=== PATIENT | female | born 1990 | race African-American/Black ===

== ENCOUNTER 2018-02-13 12:06 | Emergency (ER) | payer SELFPAY ==
[~2018-02-13] VITALS: Ht 167.6 cm; Wt 56.9 kg
[2018-02-13 13:05] LABS: MICROSCOPIC INDICATED
[2018-02-13 13:06] LABS: CULTURE INDICATED? YES
[2018-02-13] MEDS ORDERED: OXYcodone/APAP 5/325MG TABLET ONE (13:53)
[2018-02-13 13:55] VITALS: BP 114/82
[2018-02-13] MEDS ORDERED: OXYcodone/APAP 5/325MG TABLET PO ONE (14:00)
[2018-02-13 14:15] LABS: HCG UR SG 1.023 (1.003-1.030)
== END 2018-02-13 14:11 | disposition home or self-care (01) ==
LOC: ED 14:05
DX: N12 Tubulo-interstitial nephritis, not specified as acute or chronic (principal); F17.210 Nicotine dependence, cigarettes, uncomplicated
CPT/HCPCS: 81001; 81025; 87077; 87086; 87186; 99284

== ENCOUNTER 2018-04-27 18:00 | Emergency (ER) | payer SELFPAY ==
[~2018-04-27] VITALS: Ht 167.6 cm; Wt 56.8 kg
[2018-04-27] MEDS ORDERED: ONDANSETRON ODT 4 MG PO ONE (18:30)
[2018-04-27] MEDS ORDERED: HYDROcodone/APAP 5/325 TABLET PO ONE (18:30)
[2018-04-27] MEDS ORDERED: LIDOCAINE-MPF 1%, 5ML INFIL ONE (18:30)
[2018-04-27] MEDS ORDERED: LIDOCAINE-MPF 2%, 2ML ONE (18:35)
[2018-04-27] MEDS ORDERED: HYDROcodone/APAP 5/325 TABLET ONE (19:07)
[2018-04-27] MEDS ORDERED: ONDANSETRON ODT 4 MG ONE (19:07)
[2018-04-27 19:21] VITALS: BP 131/64
== END 2018-04-27 19:23 | disposition home or self-care (01) ==
LOC: ED 19:10
DX: L03.311 Cellulitis of abdominal wall (principal); L02.211 Cutaneous abscess of abdominal wall; M06.9 Rheumatoid arthritis, unspecified; F17.200 Nicotine dependence, unspecified, uncomplicated; Z79.82 Long term (current) use of aspirin
CPT/HCPCS: 10060; 99283; Q0162

== ENCOUNTER 2018-05-15 18:59 | Emergency (ER) | payer OTHER ==
[~2018-05-15] VITALS: Ht 172.7 cm; Wt 55.0 kg
[2018-05-15] MEDS ORDERED: PRED20TA PO (19:13)
[2018-05-15] MEDS ORDERED: SODIUM CHLORIDE 0.9% 1,000ML IVBOLUS ONE (19:30)
[2018-05-15 19:36] LABS: MEAN CORPUSCULAR HEMOGLOBIN 30.9 pg (27.0-34.8); MEAN CORPUSCULAR VOLUME 93.7 fL (80-100); MEAN PLATELET VOLUME 8.4 fL (7.4-10.4); PLATELET COUNT 378 x10^3/uL (130-400); RED BLOOD COUNT 4.24 x10^6/uL (3.82-5.3); RED CELL DISTRIBUTION WIDTH 13.7 % (9.6-15.2)
[2018-05-15 19:43] LABS: ALBUMIN 3.5 g/dL (3.4-5.0); ANION GAP 6 mmol/L (5-15); CALCIUM 8.8 mg/dL (8.5-10.1); CHLORIDE 110 mmol/L (98-107)
[2018-05-15 19:48] LABS: ALANINE AMINOTRANSFERASE 26 U/L (12-78); ALKALINE PHOSPHATASE 56 U/L (45-117); BILIRUBIN,TOTAL 0.2 mg/dL (0.2-1.0); CREATININE 1.08 mg/dL (0.55-1.02); TOTAL PROTEIN 7.3 g/dL (6.4-8.2)
[2018-05-15 20:06] LABS: MD YES
[2018-05-15 20:08] LABS: <PLATELET ESTIMATE> ADEQUATE; <PLT MORPHOLOGY> NORMAL PLT MORPH; <RBC MORPHOLOGY> NORMAL; BAND#(MANUAL) 0.07 x10^3/uL; BANDS%(MANUAL) 1 % (0-7); EOS#(MANUAL) 0.15 x10^3/uL (0.0-0.4); EOS% (MANUAL) 2 % (1-7); LYMPH#(MANUAL) 0.74 x10^3/uL (1-3.4); LYMPHS% (MANUAL) 10 % (22-44); MONOS#(MANUAL) 0.44 x10^3/uL (0.3-2.7); MONOS% (MANUAL) 6 % (2-9); SEG#(MANUAL) 5.99 x10^3/uL (1.8-6.8); SEGS% (MANUAL) 81 % (42-75)
[2018-05-15 20:12] VITALS: BP 113/75
== END 2018-05-15 21:34 | disposition home or self-care (01) ==
LOC: ED 19:20
DX: G40.409 Other generalized epilepsy and epileptic syndromes, not intractable, without status epilepticus (principal); M06.9 Rheumatoid arthritis, unspecified
CPT/HCPCS: 36415; 70450; 80053; 84703; 85025; 93005; 99285; J7030

== ENCOUNTER 2018-06-24 09:55 | Emergency (ER) | payer MEDICAID, OTHER ==
[~2018-06-24] VITALS: Ht 167.6 cm; Wt 68.3 kg
[~2018-06-24 09:55] MED LIST: PRED20TA PO
[2018-06-24 09:59] VITALS: BP 121/78
== END 2018-06-24 10:39 | disposition home or self-care (01) ==
LOC: ED 10:30
DX: M79.642 Pain in left hand (principal); M25.512 Pain in left shoulder; Z76.0 Encounter for issue of repeat prescription; M06.9 Rheumatoid arthritis, unspecified
CPT/HCPCS: 99283

== ENCOUNTER 2018-06-26 08:18 | Emergency (ER) | payer MEDICAID ==
[~2018-06-26] VITALS: Ht 167.6 cm; Wt 68.0 kg
[2018-06-26 10:45] VITALS: BP 121/77
[2018-06-26 10:55] LABS: ANION GAP 8 mmol/L (5-15); CALCIUM 8.6 mg/dL (8.5-10.1); CHLORIDE 108 mmol/L (98-107)
[2018-06-26 11:41] LABS: BASOPHILS # (AUTO) 0.03 x10^3/uL (0-0.1); BASOPHILS % (AUTO) 0 % (0-1); EOSINOPHILS # (AUTO) 0.02 x10^3/uL (0-0.4); EOSINOPHILS % (AUTO) 0 % (1-7); LYMPHOCYTES % (AUTO) 7 % (22-44); MD NO; MEAN CORPUSCULAR HEMOGLOBIN 31.8 pg (27.0-34.8); MEAN CORPUSCULAR HGB CONC 33.9 g/dL (32.4-35.8); MEAN CORPUSCULAR VOLUME 93.9 fL (80-100); MONOCYTES # (AUTO) 0.29 x10^3/uL (0.2-0.8); MONOCYTES % (AUTO) 3 % (2-9); NEUTROPHILS # (AUTO) 9.53 x10^3/uL (1.8-6.8); NEUTROPHILS % (AUTO) 90 % (42-75); PLATELET COUNT 424 x10^3/uL (130-400); RED CELL DISTRIBUTION WIDTH 13.8 % (9.6-15.2)
== END 2018-06-26 12:00 | disposition home or self-care (01) ==
LOC: ED 11:37
DX: M19.011 Primary osteoarthritis, right shoulder (principal); M19.021 Primary osteoarthritis, right elbow; M06.9 Rheumatoid arthritis, unspecified
CPT/HCPCS: 36415; 71046; 80048; 82040; 85025; 93005; 99285

== ENCOUNTER 2018-07-31 07:48 | Emergency (ER) | payer MEDICAID ==
[~2018-07-31] VITALS: Ht 167.6 cm; Wt 67.1 kg
[2018-07-31 07:54] VITALS: BP 113/73
[2018-07-31] MEDS ORDERED: CARBAMIDE PEROXIDE EAR DROPS 6.5%, 15ML ONE (08:21)
[2018-07-31] MEDS ORDERED: CARBAMIDE PEROXIDE EAR DROPS 6.5%, 15ML LEFT EAR ONE (08:30)
== END 2018-07-31 09:29 | disposition home or self-care (01) ==
LOC: ED 09:14
DX: H61.23 Impacted cerumen, bilateral (principal); H60.502 Unspecified acute noninfective otitis externa, left ear; M06.9 Rheumatoid arthritis, unspecified
CPT/HCPCS: 69209; 99283

== ENCOUNTER 2018-11-01 17:39 | Emergency (ER) | payer MEDICAID ==
[~2018-11-01] VITALS: Ht 167.6 cm; Wt 62.4 kg
[2018-11-01] MEDS ORDERED: KETOROLAC 30 MG/1 ML IM ONE (18:00)
[2018-11-01] MEDS ORDERED: KETOROLAC 30 MG/1 ML ONE (20:10)
--- NOTE | 2018-11-01 20:34 | NUR ---
Patient at radiology
[2018-11-01 20:55] LABS: BASOPHILS # (AUTO) 0.03 x10^3/uL (0-0.1); BASOPHILS % (AUTO) 0 % (0-1); EOSINOPHILS # (AUTO) 0.21 x10^3/uL (0-0.4); EOSINOPHILS % (AUTO) 3 % (1-7); LYMPHOCYTES % (AUTO) 30 % (22-44); MD NO; MEAN CORPUSCULAR HEMOGLOBIN 31.4 pg (27.0-34.8); MEAN CORPUSCULAR HGB CONC 33.4 g/dL (32.4-35.8); MEAN CORPUSCULAR VOLUME 94.1 fL (80-100); MEAN PLATELET VOLUME 8.4 fL (7.4-10.4); MONOCYTES % (AUTO) 9 % (2-9); NEUTROPHILS # (AUTO) 3.91 x10^3/uL (1.8-6.8); NEUTROPHILS % (AUTO) 58 % (42-75); PLATELET COUNT 399 x10^3/uL (130-400); RED BLOOD COUNT 4.38 x10^6/uL (3.82-5.3); RED CELL DISTRIBUTION WIDTH 13.1 % (9.6-15.2)
[2018-11-01 20:56] LABS: HCT (SEDRATE) 41.2 % (34.6-47.8)
[2018-11-01 21:06] LABS: ALBUMIN 4.3 g/dL (3.4-5.0); ANION GAP 5 mmol/L (5-15); CALCIUM 9.1 mg/dL (8.5-10.1); CHLORIDE 113 mmol/L (98-107); CREATININE 0.92 mg/dL (0.55-1.02)
[2018-11-01 21:07] LABS: C-REACTIVE PROTEIN, QUANT < 0.02 mg/dL (0.02-0.49)
[2018-11-01 21:10] LABS: TROPONIN I < 0.015 ng/mL (0.000-0.045)
[2018-11-01] MEDS ORDERED: PRED20TA PO (21:30)
[2018-11-01 21:36] VITALS: BP 128/79
== END 2018-11-01 21:38 | disposition home or self-care (01) ==
LOC: ED 21:32
DX: M54.6 Pain in thoracic spine (principal); M19.90 Unspecified osteoarthritis, unspecified site; M06.9 Rheumatoid arthritis, unspecified
CPT/HCPCS: 36415; 71046; 80048; 82040; 84484; 85025; 85379; 85651; 86140; 93005; 96372; 99284; J1885

== ENCOUNTER 2020-06-21 15:31 | Emergency (ER) | payer MEDICAID ==
[~2020-06-21] VITALS: Ht 167.6 cm; Wt 70.5 kg
[2020-06-21 15:51] VITALS: BP 124/66
--- NOTE | 2020-06-21 16:27 | NUR ---
Patient/Caregiver given discharge instructions and they have confirmed that they understand the instructions. Patient ambulatory with steady gait.
== END 2020-06-21 16:29 | disposition home or self-care (01) ==
LOC: ED 16:14
DX: B30.9 Viral conjunctivitis, unspecified (principal); H57.11 Ocular pain, right eye
CPT/HCPCS: 99283